=== PATIENT | female | born 1985 ===

== ENCOUNTER 2021-02-16 07:33 | Inpatient (IN) ==
--- NOTE | 2021-02-16 07:53 | History & Physical Report ---
Date of Service February 16, 2021 Assessment & Plan (1) Encounter for induction of labor: Plan: 36 yo at 41wk0d presenting for late term IOL -Vital signs reviewed- HDS, afebrile -O+, GBS-, RI -FHT Category 1 -Continue expectant management- hernandez bulb placement, pitocin -AROM and epidural available Admission and Anticipated Discharge Date Admission Date: February 16, 2021 History of Present Illness Chief Complaint: IOL Primary Care Provider: Sara Kelly MD 36 yo at 41wk0d EGA, NATHALIE 02/09 by LMP presenting for late term IOL. Denies contractions, LOF, VB. Reports good FM. Seen in OB clinic day prior and sent to L&D for IOL. Denies chest pain, headache, nausea/vomiting, abdominal pain. uncomplicated thus far, regularly attended OB appointments. CTX: none FM: present VB: none LOF: none PNI: -Multigravida -Maternal obesity PERIANESTHESIA NURSE Hx - -Elective at 15wk in 2010 -FT SVDs in 05/2013, 06/2015, 06/2017 -Cycles q28-30d -2019 pap wnl -No history of STIs Allergies Allergy/AdvReac Type Severity Reaction Status Date / Time No Known Allergies Allergy Verified 02/04/21 09:07 Home Medications Medication Instructions Recorded Confirmed Type prenat.vits,ankit,nrm-[id number]-nnwkm 1 tab PO DAILY 06/25/20 02/16/21 History Past Med/Surg History Medical History (Updated 02/16/21 @ 09:03 by Irena Harvey MD, FACOG) History of chicken pox Surgical History History of elective Family History (Updated 06/25/20 @ 10:01 by Dasia Tinsley, JAMIE) Mother Breast cancer Father Myocardial infarction Factor 5 Leiden mutation, heterozygous Brother Factor 5 Leiden mutation, heterozygous Sister Factor 5 Leiden mutation, heterozygous Denies family history of Ovarian cancer Prostate cancer Colorectal cancer Social History (Updated 06/25/20 @ 10:05 by Dasia Tinsley, JAMIE) Smoking Status: Never smoker Second Hand Exposure: No; Do You Dip or Chew Tobacco: No; Hx Alcohol Use: No Hx Substance Use: No Preferred Language: Wolof Communication Ability: Effective 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 no pets current occupational status: unemployed current occupation: stay at home mom Other Information That Helps Us Care for You: No Feels Safe at Home: Yes Safety Concerns: Feels Safe At This Time Assistive Devices: None Review of Systems Review of Systems: Denies fevers/chills. Denies dyspnea, cough. Denies chest pain. Denies breast pain or discharge. Denies dysuria. Denies headache. Denies back pain. Physical Exam Physical Exam: General: Alert, oriented, no acute distress Cardiac: Regular rate and rhythm, normal S1, S2. No murmurs appreciated. Respiratory: Clear to auscultation b/l with good air flow entry, symmetric chest rise and fall. No wheezes or crackles. No increased work of breathing or accessory muscle use Abdomen: Gravid, soft, nontender. No rebound, guarding or CVA tenderness Skin: No rashes or lesions Extremities: Warm, dry, well-perfused with capillary refill <2s b/l. No lower extremity edema, erythema or swelling. Negative Khushbu's sign b/l. Pelvic Exam per Dr. Harvey Dilation: 3 cm Effacement: 75% Station: -2 FHR Baseline: 135 BPM Variability: Moderate Accelerations: Present Decelerations: Absent Results & Data Results & Data ([facility]) Laboratory Results OB Labs: Blood Type O Positive 07/06/20 Antibody Screen NEGATIVE 07/06/20 Hemoglobin 12.9 g/dL (12.0-16.0) 11/24/20 Hematocrit 39.2 % (37-47) 11/24/20 Mean Corpuscular Volume 84.9 fL (80-100) 07/06/20 Platelet Count 237 K/uL (130-400) 07/06/20 Rubella IgG Antibody Immune (Immune) 07/06/20 Rapid Plasma Reagin Nonreactive (Nonreactive) 07/06/20 Hepatitis B Surface Antigen Neg (Neg) 07/06/20 HIV (1&2) Ab and P24 Ag, 4th Gener Neg (Neg) 07/06/20 Glucose 1 Hour 50 gm Load 94 mg/dl (70-130) 11/24/20 OB Optional Labs: Chlamydia trachomatis RNA NOT DETECTED (NOT DETECTED) 07/06/20 Neisseria gonorrhoeae RNA NOT DETECTED (NOT DETECTED) 07/06/20 Thyroid Stimulating Hormone (TSH) 1.700 uIu/ml (0.300-4.500) 06/11/18 Supervising Physician Co-Signing Physician Notes Resident Physician Supervision Note: I interviewed and examined the patient. Discussed with Dr. Tolentino and agree with findings and plan as documented in the note. Any exceptions or clarifications are listed here: See my H&P for details. given cx exam, no indication for hernandez balloon. Documented By: Irena Harvey MD, FACOG Resident Activity Tracking Resident Involvement: Resident Care Provided Care Provided: OB Delivery
[2021-02-16] MEDS ORDERED: OXYTOCIN 30 UNITS/500 ML BAG IV PRN ×3 (08:35→16:49)
[2021-02-16] MEDS ORDERED: LACTATED RINGER'S 1,000 ML IV PRN (08:35)
[2021-02-16 09:03] LABS: Hematocrit (blood only) 37.5 % (37-47); Hemoglobin 12.4 g/dL (12.0-16.0); Mean Corpuscular Hemoglobin 28.8 pg (25-34); Mean Corpuscular Hgb Conc 33.1 g/dL (32-36); Mean Corpuscular Volume 87.2 fL (80-100); Mean Platelet Volume 12.8 fL (7.4-10.4); Platelet Count 153 K/uL (130-400); RDW Coefficient of Variation 14.3 % (11.5-14.5); RDW Standard Deviation 45.4 fL (36.4-46.3)
--- NOTE | 2021-02-16 09:03 | History & Physical Report ---
Date of Service February 16, 2021 Assessment & Plan (1) Encounter for induction of labor: (2) Obesity affecting : (3) Post-dates : Plan: Admit, iv, labs. plan pitocin and arom. fhts categ 1. pt and partner agreeable. Admission and Anticipated Discharge Date Admission Date: February 16, 2021 History of Present Illness Chief Complaint: planned induction Primary Care Provider: Sara Kelly MD 36yo at 41wks escobar presents to L&D for admission for postdatism. She is well. Denies rom. Some cramping. No vb. +FM PNC c/b 1. obesity 2. prior macrosomia--delivered a 10# baby last time with no issues PNL Rh pos, RI, GBS neg OBH: x 3 GYNH: nl paps no stds Allergies Allergy/AdvReac Type Severity Reaction Status Date / Time No Known Allergies Allergy Verified 02/04/21 09:07 Home Medications Medication Instructions Recorded Confirmed Type prenat.vits,ankit,cnc-cpqm-cbuza 1 tab PO DAILY 06/25/20 02/16/21 History Patient History Medical History (Updated 02/16/21 @ 09:03 by Irena Harvey MD, FACOG) History of chicken pox Surgical History History of elective Family History (Updated 06/25/20 @ 10:01 by Dasia Tinsley, JAMIE) Mother Breast cancer Father Myocardial infarction Factor 5 Leiden mutation, heterozygous Brother Factor 5 Leiden mutation, heterozygous Sister Factor 5 Leiden mutation, heterozygous Denies family history of Ovarian cancer Prostate cancer Colorectal cancer Social History (Updated 06/25/20 @ 10:05 by Dasia Tinsley, JAMIE) Smoking Status: Never smoker Second Hand Exposure: No; Do You Dip or Chew Tobacco: No; Hx Alcohol Use: No Hx Substance Use: No Preferred Language: Tunisian Communication Ability: Effective 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 no pets current occupational status: unemployed current occupation: stay at home mom Other Information That Helps Us Care for You: No Feels Safe at Home: Yes Safety Concerns: Feels Safe At This Time Assistive Devices: None Review of Systems as per Subjective / HPI Physical Exam Constitutional: WD/WN, vitals as above Respiratory: normal respiratory effort, lungs clear to auscultation Cardiovascular: Rate/Rhythm: regular rate and regular rhythm Gastrointestinal (Abdomen): soft gravid nt Musculoskeletal: tr edema nontender calves Neurologic: grossly normal Psychiatric: A+Ox3, euthymic affect Genitourinary: OB Exam Abdomen: + vertex (by US) and + estimated weight (9-10#) Manual OB Exam: + cervical dilation 3 cm, + cervical effacement (75%) and + station -2 OB Exam Monitor Tracing: + external FHT monitor used, + external uterine monitor used (irreg), + category I and + normal FHT variability Results & Data ([facility]) Vital Signs (Past 12 Hours) Vital Signs Temp Pulse Resp BP 02/16/21 08:16 97.9 F 65 20 124/67 02/16/21 07:56 65 124/67 Code Status & VTE Plan VTE Prophylaxis Plan VTE Prophylaxis will be ordered: Yes Coding Level of Care Code None Diagnoses Encounter for induction of labor Z34.90 Obesity affecting O99.210 Post-dates O48.0
--- NOTE | 2021-02-16 11:58 | Labor Progress Brief Note ---
Date of Service February 16, 2021 Subjective feeling some ctx Assessment & Plan (1) Post-dates : (2) Encounter for induction of labor: (3) Obesity affecting : Plan: will see how arom helps labor pattern. fhts categ 1 Admission and Anticipated Discharge Date Admission Date: February 16, 2021 Physical Exam Constitutional: WD/WN, vitals as above Genitourinary: Manual OB Exam: + cervical dilation (3-4), + cervical effacement (75%), + station -2 and + amniotic fluid (AROM) clear OB Exam Monitor Tracing: + external FHT monitor used, + external uterine monitor used (not traced well), + category I and + normal FHT variability Results & Data ([facility]) Vital Signs (Past 12 Hours) Vital Signs Temp Pulse Resp BP 02/16/21 11:31 55 L 113/72 02/16/21 09:19 51 L 110/67 02/16/21 08:16 97.9 F 65 20 124/67 02/16/21 07:56 65 124/67 Coding Level of Care Code None Diagnoses Post-dates O48.0 Encounter for induction of labor Z34.90 Obesity affecting O99.210
--- NOTE | 2021-02-16 14:00 | Labor Progress Brief Note ---
Date of Service February 16, 2021 Subjective feels more pressure Assessment & Plan (1) Encounter for induction of labor: (2) Obesity affecting : (3) Post-dates : Plan: c/w pitocin, fhts categ 1. Admission and Anticipated Discharge Date Admission Date: February 16, 2021 Physical Exam Genitourinary: Manual OB Exam: + cervical dilation 4 cm, + cervical effacement 80% and + station -2 OB Exam Monitor Tracing: + external FHT monitor used, + external uterine monitor used (q2-3), + category I and + normal FHT variability Results & Data ([facility]) Vital Signs (Past 12 Hours) Vital Signs Temp Pulse Resp BP 02/16/21 13:31 60 135/82 02/16/21 12:32 57 L 123/73 02/16/21 11:45 97.7 F 55 L 18 113/72 02/16/21 11:31 55 L 113/72 02/16/21 09:19 51 L 110/67 02/16/21 08:16 97.9 F 65 20 124/67 02/16/21 07:56 65 124/67 02/16/21 07:55 97.9 F 65 20 124/67 Coding Level of Care Code None Diagnoses Encounter for induction of labor Z34.90 Obesity affecting O99.210 Post-dates O48.0
[2021-02-16] MEDS ORDERED: BUTORPHANOL TARTRATE 1 MG/ML VIAL IV ONE (14:59)
--- NOTE | 2021-02-16 16:35 | Delivery Summary ---
Vaginal Delivery Summary Date of Service February 16, 2021 Vaginal Delivery Summary The patient dilated to complete and pushed to deliver a viable female infant Apgars 9 and 9 via over intact perineum. Mouth and nose bulb suctioned at perineum. Shoulders and body delivered with ease. was vigorous and crying at . Cord clamped at 30 seconds of life and infant to maternal abdomen where the cord was then doubly clamped and cut. Placenta delivered spontaneously and intact, three-vessel cord. Hemostasis achieved with dilute pitocin and uterine massage. Cervix and sulci intact. EBL 300 cc. Mother and baby stable recovery. [facility] Vaginal Delivery Charge Delivery Type Details:
[2021-02-16] MEDS ORDERED: OXYTOCIN 20 UNITS in LACTATED RINGER'S 1,000 ML IV SCH (16:45)
[2021-02-16] MEDS ORDERED: HYDROCORTISONE ACETATE 25 MG SUPP PR PRN (16:49)
[2021-02-16] MEDS ORDERED: SUPERCREAM 0.870% 15 GM JAR EXT PRN (16:49)
[2021-02-16] MEDS ORDERED: bisacodyL 10 MG SUPP PR PRN (16:49)
[2021-02-16] MEDS ORDERED: BENZOCAINE 20% AER SPR 82.5 GM CAN EXT PRN (16:49)
[2021-02-16] MEDS ORDERED: ACETAMINOPHEN 325 MG TAB PO PRN (16:49)
[2021-02-16] MEDS ORDERED: DIPHTHERIA/TETANUS/PERTUSSIS 0.5 ML SYR/VIAL IM ONE (16:49)
[2021-02-16] MEDS: IBUPROFEN 600 MG TAB PO PRN (19:42)
[2021-02-16] MEDS: DOCUSATE SODIUM 100 MG CAP PO SCH (20:59)
[2021-02-17] MEDS: IBUPROFEN 600 MG TAB PO PRN ×2 (04:41→16:01)
[2021-02-17 06:38] LABS: Hematocrit (blood only) 34.3 % (37-47); Hemoglobin 11.1 g/dL (12.0-16.0); Mean Corpuscular Hemoglobin 28.2 pg (25-34); Mean Corpuscular Hgb Conc 32.4 g/dL (32-36); Mean Corpuscular Volume 87.1 fL (80-100); Platelet Count 149 K/uL (130-400); RDW Coefficient of Variation 14.4 % (11.5-14.5); RDW Standard Deviation 45.5 fL (36.4-46.3); Red Blood Count 3.94 M/uL (4.2-5.4); White Blood Count 8.74 K/uL (4.8-10.8)
--- NOTE | 2021-02-17 07:39 | Obstetrical Progress Note ---
Date of Service February 17, 2021 Assessment & Plan (1) care and examination: stable, desires d/c home at 24hr, doing well. instructions reviewed. f/u 6 wk pp check. rh pos, ri, . Day #:: 1 Subjective Ambulation: ambulating normally Voiding: no voiding problems Diet Tolerance:: regular diet Lochia:: Small Feeding Type:: breast feeding denies pain issues Constitutional: + as per Subjective / HPI Physical Exam Constitutional WD/WN, vitals as above Respiratory normal respiratory effort, lungs clear to auscultation Cardiovascular Rate/Rhythm: regular rate and regular rhythm Gastrointestinal (Abdomen) Inspection/Auscultation: abdomen normal to inspection Percussion/Palpation: abdomen soft Fundus firm 2cm down Musculoskeletal nt calves no edema Neurologic grossly normal Psychiatric A+Ox3, euthymic affect Results & Data ([facility]) Vital Signs (Past 12 Hours) Vital Signs Temp Pulse Resp BP Pulse Ox 02/17/21 04:45 97.5 F L 50 L 16 116/75 98 02/16/21 23:10 97.9 F 52 L 16 119/75 98 02/16/21 21:10 97.7 F 54 L 16 126/79 98
[2021-02-17] MEDS ORDERED: PRENATAL VITAMIN 1 TAB PO SCH (08:00)
[2021-02-17] MEDS: DOCUSATE SODIUM 100 MG CAP PO SCH (08:01)
[2021-02-17] MEDS ORDERED: NON-FORMULARY MEDICATION (Prenat.Vits,Cal,Min-Iron-Folic tablet) PO SCH (09:00)
== END 2021-02-17 17:26 | disposition home or self-care (01) | DRG 807 ==
LOC: 4S1 07:33 → 4S2 19:43
DX: Z3A.41 41 weeks gestation of pregnancy; O48.0 Post-term pregnancy; O09.893 Supervision of other high risk pregnancies, third trimester; Z37.0 Single live birth; E66.9 Obesity, unspecified; O99.214 Obesity complicating childbirth; Z79.899 Other long term (current) drug therapy